=== PATIENT | male | born 1970 | race Two or more races ===

== ENCOUNTER 2025-02-27 23:38 | Emergency (ER) | payer OTHER ==
[~2025-02-27] VITALS: Ht 185.4 cm; Wt 96.4 kg
[2025-02-27] MEDS ORDERED: FLUORESCEIN SODIUM 1 MG STRIP ONE (23:59)
[2025-02-28] MEDS: PROPARACAINE HCL 0.5% 15 ML OPHTHALMIC SOLUTION OS ONE (00:01)
[2025-02-28 00:02] VITALS: BP 149/83; PULSE 63; RESP 18; TEMP 98.205296; O2SAT 97
[2025-02-28] MEDS: TOBRAMYCIN/DEXAMETHASONE 5 ML OPHTHALMIC SUSPENSION OU ONE (00:40)
== END 2025-02-28 00:45 ==
LOC: EMS 23:41
DX: H10.89 Other conjunctivitis (principal); H11.31 Conjunctival hemorrhage, right eye; E78.00 Pure hypercholesterolemia, unspecified; Z65.3 Problems related to other legal circumstances; Z91.018 Allergy to other foods
CPT/HCPCS: 99283